=== PATIENT | male | born 1985 | race Caucasian/White ===

== ENCOUNTER 2022-01-12 18:20 | Emergency (ER) | payer MEDICAID ==
[~2022-01-12] VITALS: Ht 182.9 cm; Wt 85.0 kg
[2022-01-12 18:35] VITALS: BP 144/96
== END 2022-01-12 18:58 | disposition left against medical advice (07) ==
LOC: ER 18:20
DX: Z53.21 Procedure and treatment not carried out due to patient leaving prior to being seen by health care provider (principal); Z98.890 Other specified postprocedural states
CPT/HCPCS: 93005